=== PATIENT | female | born 1955 | race Two or more races ===

== ENCOUNTER 2021-09-27 16:07 | Emergency (ER) | payer MEDICARE, OTHER ==
[~2021-09-27] VITALS: Ht 157.5 cm; Wt 73.9 kg
[2021-09-27 16:11] VITALS: BP 134/74
[2021-09-27 17:23] LABS: BASOPHILS % (AUTO) 0.2 % (0.0-2.0); EOSINOPHILS % (AUTO) 0.8 % (0.0-4.0); HEMOGLOBIN 11.6 g/dL (12.0-16.0); LYMPHOCYTES # (AUTO) 1.8 K/uL (2.5-16.5); LYMPHOCYTES % (AUTO) 31.3 % (20.5-51.1); MEAN CORPUSCULAR HEMOGLOBIN 30 pg (27-31); MEAN CORPUSCULAR HGB CONC 34 g/dL (33-37); MEAN CORPUSCULAR VOLUME 87.6 fL (80-94); MONOCYTES # (AUTO) 0.5 K/uL (0.8-1.0); MONOCYTES % (AUTO) 9.4 % (1.7-9.3); NEUTROPHILS # (AUTO) 3.3 K/uL (1.8-7.7); NEUTROPHILS % (AUTO) 58.3 % (42.2-75.2); PLATELET COUNT (AUTO) 206 K/uL (140-450); RED BLOOD CELL COUNT(AUTO) 3.88 MIL/uL (4.20-5.40); RED CELL DISTRIBUTION WIDTH 13.6 % (11.6-13.7); WHITE BLOOD COUNT (AUTO) 5.7 K/uL (4.8-10.8)
[2021-09-27 17:41] LABS: ALBUMIN 3.5 g/dL (3.4-5.0); ANION GAP 14.3 (8-16); CARBON DIOXIDE 26.4 mmol/L (21-32); CREATININE 0.9 mg/dL (0.6-1.3); POTASSIUM 3.7 mmol/L (3.5-5.1); TOTAL BILIRUBIN 0.3 mg/dL (0.0-1.0)
[2021-09-27] MEDS ORDERED: IBUP-2213 PO (18:53)
[2021-09-27 19:03] VITALS: BP 134/74
== END 2021-09-27 19:04 | disposition home or self-care (01) ==
LOC: MED 16:07
DX: R51.9 Headache, unspecified (principal); E86.0 Dehydration; Z79.1 Long term (current) use of non-steroidal anti-inflammatories (NSAID); I10 Essential (primary) hypertension
CPT/HCPCS: 36415; 70450; 80053; 85025; 99284

== ENCOUNTER 2021-10-05 13:36 | Emergency (ER) | payer MEDICARE, OTHER ==
[~2021-10-05] VITALS: Ht 153.7 cm; Wt 74.2 kg
[~2021-10-05 13:36] MED LIST: IBUP-2213 PO
[2021-10-05 13:38] VITALS: BP 183/105
[2021-10-05 14:22] LABS: BASOPHILS % (AUTO) 0.1 % (0.0-2.0); EOSINOPHILS % (AUTO) 0.5 % (0.0-4.0); HEMATOCRIT 37.2 % (36-48); HEMOGLOBIN 12.6 g/dL (12.0-16.0); LYMPHOCYTES # (AUTO) 1.3 K/uL (2.5-16.5); LYMPHOCYTES % (AUTO) 18.2 % (20.5-51.1); MEAN CORPUSCULAR HEMOGLOBIN 30 pg (27-31); MEAN CORPUSCULAR HGB CONC 34 g/dL (33-37); MEAN CORPUSCULAR VOLUME 87.5 fL (80-94); MONOCYTES # (AUTO) 0.6 K/uL (0.8-1.0); MONOCYTES % (AUTO) 8.9 % (1.7-9.3); NEUTROPHILS # (AUTO) 5.2 K/uL (1.8-7.7); NEUTROPHILS % (AUTO) 72.3 % (42.2-75.2); PLATELET COUNT (AUTO) 194 K/uL (140-450); RED BLOOD CELL COUNT(AUTO) 4.26 MIL/uL (4.20-5.40); RED CELL DISTRIBUTION WIDTH 14.2 % (11.6-13.7); WHITE BLOOD COUNT (AUTO) 7.2 K/uL (4.8-10.8)
[2021-10-05] MEDS ORDERED: ACETAMINOPHEN EXTRA STRENGTH 500 MG TAB PO ONE (14:35)
[2021-10-05 14:49] LABS: ANION GAP 11.4 (8-16); CARBON DIOXIDE 26.1 mmol/L (21-32); CREATININE 0.9 mg/dL (0.6-1.3); POTASSIUM 3.5 mmol/L (3.5-5.1); TOTAL BILIRUBIN 0.2 mg/dL (0.0-1.0)
--- NOTE | 2021-10-05 15:00 | NUR ---
LAB AT PT BEDSIDE
--- NOTE | 2021-10-05 15:02 | NUR ---
URINE COLLECTED AND HANDED TO LAB
[2021-10-05] MEDS ORDERED: NACL 0.9% 1,000 ML IV ONE (15:05)
--- NOTE | 2021-10-05 15:05 | NUR ---
66 Y/O FEMALE BIB DAUGHTER C/O WEAKNESS/ LIGHTHEADEDNESS AND HEAR PALPITATIONS. PT STATES " HER HEART WAS BEATING HARD". PT HAS BEEN FASTING OR RAMADAN. PT DENIES SOB, CHEST PAIN, FEVER OR CHILLS. PT DENIES N/V/D. PT IS ALERT AND ORIENTED X4. BED IN LOWEST POSITION. BED RAIL X1. PMH:HTN MEDS: DENIES NKA
[2021-10-05 15:09] LABS: APPEARANCE,URINE CLEAR (CLEAR); BILIRUBIN,URINE NEGATIVE (NEGATIVE); BLOOD, URINE 1+ (NEGATIVE); LEUKOCYTE ESTERASE ,URINE NEGATIVE (NEGATIVE); NITRITE, URINE NEGATIVE (NEGATIVE); PH,URINE 5.5 (5.0-9.0); UGLUCOSE NEGATIVE (NEGATIVE)
[2021-10-05 15:12] LABS: COLOR,URINE STRAW (YELLOW)
[2021-10-05 15:19] LABS: RBC,URINE 0-5 /HPF (0-5); WBC,URINE NONE SEEN /HPF (0-5)
[2021-10-05 16:55] VITALS: BP 153/75
--- NOTE | 2021-10-05 16:56 | NUR ---
Patient discharged with v/s stable. Written and verbal after care instructions given and explained. Patient verbalized understanding. Ambulatory with steady gait. All questions addressed prior to discharge. Advised to follow up with PMD.
== END 2021-10-05 16:56 | disposition home or self-care (01) ==
LOC: MED 13:36
DX: E86.0 Dehydration (principal); M54.59 Other low back pain; R51.9 Headache, unspecified; I10 Essential (primary) hypertension
CPT/HCPCS: 36415; 71045; 80053; 81001; 83880; 84484; 85025; 93005; 96360; 99285; Q0092; J7030

== ENCOUNTER 2021-11-15 10:52 | Emergency (ER) | payer MEDICARE, OTHER ==
[~2021-11-15] VITALS: Ht 157.5 cm; Wt 70.8 kg
[2021-11-15 10:54] VITALS: BP 126/68
--- NOTE | 2021-11-15 11:01 | NUR ---
PT TO WAIT IN LOBBY.
--- NOTE | 2021-11-15 11:36 | NUR ---
PT AMBULATED TO ER BED 5
--- NOTE | 2021-11-15 11:50 | NUR ---
PT TAKEN TO CT VIA [facility]
--- NOTE | 2021-11-15 11:58 | NUR ---
PT RETURNED FROM CT VIA [facility]
[2021-11-15 12:24] LABS: BASOPHILS % (AUTO) 0.2 % (0.0-2.0); EOSINOPHILS # (AUTO) 0.1 K/uL (0-0.4); EOSINOPHILS % (AUTO) 1.2 % (0.0-4.0); HEMATOCRIT 36.8 % (36-48); HEMOGLOBIN 12.7 g/dL (12.0-16.0); LYMPHOCYTES # (AUTO) 1.4 K/uL (2.5-16.5); LYMPHOCYTES % (AUTO) 21.6 % (20.5-51.1); MEAN CORPUSCULAR HEMOGLOBIN 30 pg (27-31); MEAN CORPUSCULAR HGB CONC 35 g/dL (33-37); MEAN CORPUSCULAR VOLUME 86.5 fL (80-94); MONOCYTES # (AUTO) 0.6 K/uL (0.8-1.0); MONOCYTES % (AUTO) 9.1 % (1.7-9.3); NEUTROPHILS # (AUTO) 4.4 K/uL (1.8-7.7); NEUTROPHILS % (AUTO) 67.9 % (42.2-75.2); PLATELET COUNT (AUTO) 218 K/uL (140-450); RED BLOOD CELL COUNT(AUTO) 4.26 MIL/uL (4.20-5.40); RED CELL DISTRIBUTION WIDTH 13.5 % (11.6-13.7); WHITE BLOOD COUNT (AUTO) 6.5 K/uL (4.8-10.8)
[2021-11-15 12:26] LABS: APPEARANCE,URINE CLEAR (CLEAR); BILIRUBIN,URINE NEGATIVE (NEGATIVE); BLOOD, URINE TRACE-I (NEGATIVE); COLOR,URINE YELLOW (YELLOW); LEUKOCYTE ESTERASE ,URINE NEGATIVE (NEGATIVE); NITRITE, URINE NEGATIVE (NEGATIVE); UGLUCOSE NEGATIVE (NEGATIVE)
[2021-11-15 12:39] LABS: RBC,URINE 0-5 /HPF (0-5); WBC,URINE 0-5 /HPF (0-5)
[2021-11-15 12:40] LABS: OTHER CASTS, URINE None Seen /LPF (None Seen)
[2021-11-15 12:43] LABS: ALBUMIN 3.8 g/dL (3.4-5.0); CREATININE 0.8 mg/dL (0.6-1.3); TOTAL BILIRUBIN 0.2 mg/dL (0.0-1.0)
[2021-11-15] MEDS ORDERED: ACET-8386 PO (13:00)
[2021-11-15] MEDS ORDERED: OMEP40EC24 PO (13:00)
[2021-11-15] MEDS ORDERED: IBUP-2213 PO (13:00)
[2021-11-15] MEDS ORDERED: ONDA8TAB87 PO (13:00)
[2021-11-15] MEDS ORDERED: KETOROLAC 60 MG/2 ML VIAL IM ONE (13:05)
--- NOTE | 2021-11-15 13:48 | NUR ---
Patient discharged with v/s stable. Written and verbal after care instructions FOR NAUSEA AND ABDOMINAL PAIN given and explained. Patient alert, oriented and verbalized understanding of instructions. Ambulatory with steady gait. All questions addressed prior to discharge. ID band removed. Patient advised to follow up with PMD. Rx of HYDROCODONE, IBUPROFEN, ZOFRAN, AND OMEPRAZOLE given. Opportunity to ask questions provided and answered.
--- NOTE | 2021-11-15 13:49 | NUR ---
The patient's care was reviewed and supervised by Caro Black RN.
== END 2021-11-15 13:48 | disposition home or self-care (01) ==
LOC: MED 10:52
DX: R10.84 Generalized abdominal pain (principal); R11.0 Nausea; R19.7 Diarrhea, unspecified; I10 Essential (primary) hypertension; Z79.899 Other long term (current) drug therapy; Z79.891 Long term (current) use of opiate analgesic; Z79.1 Long term (current) use of non-steroidal anti-inflammatories (NSAID)
CPT/HCPCS: 36415; 74176; 80053; 81001; 83690; 85025; 96372; 99284; J1885